=== PATIENT | female | born 1960 | race Caucasian/White ===

== ENCOUNTER 2016-07-27 16:09 | Emergency (ER) | payer MEDICARE ==
--- NOTE | 2016-07-27 20:31 | RAD ---
CHEST TWO VIEWS 07/27/16 Comparison is made with a 01/07/15 study. The heart is normal in size and the lungs are clear. No infiltrate or effusion was seen. The mediast inum appears normal. The trachea is midline. IMPRESSION: No acute thoracic findings. POS: HOME
== END 2016-07-27 17:35 | disposition home or self-care (01) ==
LOC: BURERS 16:09
DX: J20.9 Acute bronchitis, unspecified (principal); F31.9 Bipolar disorder, unspecified; F17.210 Nicotine dependence, cigarettes, uncomplicated; Z79.899 Other long term (current) drug therapy
CPT/HCPCS: 71020; 99283